=== PATIENT | female | born 1995 | race Caucasian/White ===

== ENCOUNTER 2018-07-11 17:12 | Emergency (ER) | payer BC ==
[2018-07-11 17:18] VITALS: BP 118/65; PULSE 77; TEMP 98.1; BMI 22.2
[2018-07-11] MEDS ORDERED: DIPHTH,PERTUSS(ACELL),TET 0.5 ML DISP.SYRIN IM ONE (17:23)
--- NOTE | 2018-07-11 17:23 | PDOC ---
Attending Attestation - Resident Resident Name: Javon Huerta - ED Attending Attestation I have performed the following: I have examined & evaluated the patient, The case was reviewed & discussed with the resident, I agree w/resident's findings & plan, Exceptions are as noted - HPI HPI: 07/11/18 17:23 23 yo F presenting to the ER s/p trauma to the toe - pt dropped weight on toe - Physicial Exam PE: 07/12/18 10:29 GENERAL: Awake, alert, and fully oriented, in no acute distress extremity: diffusely tender to palpation, 2+ DP, 2+ PT, cap refil <2 sec, sensation in tact skin: laceration on plantar aspect of 4th digit, deep, 1.5 cm. - Medical Decision Making 07/12/18 10:30 Xray reveals distal tuft fracture Laceration re approximated by Dr Huerta Abx prescribed Pt to follow up with ortho Clinical Impression: toe fracture, initial presentation Laceration, initial presentation
--- NOTE | 2018-07-11 17:45 | PDOC ---
History of Present Illness - General Chief Complaint: Injury Stated Complaint: RT FOOT INJURY Time Seen by Provider: 07/11/18 17:15 History Source: Patient Exam Limitations: No Limitations - History of Present Illness Initial Comments: 07/11/18 17:43 Patient is a 23F with no significant medical history here today complaining of foot pain after dropping a dumbbell on her right foot. She states that this happened today. She was able to walk with some assistance. Patient endorses a laceration to the fourth toe. Denies fevers, chills, nausea, vomiting. Denies any other trauma. Last tetanus unknown. Patient is unsure of LMP. Past History - Past Medical History Allergies/Adverse Reactions: Allergies Allergy/AdvReac Type Severity Reaction Status Date / Time No Known Allergies Allergy Verified 07/11/18 17:13 Home Medications: Ambulatory Orders Amox-Tr/K Cl [Augmentin - 875Mg Tablet] 1 tab PO BID #24 tablet 07/11/18 Ibuprofen 400 mg PO ONCE 07/11/18 COPD: No Other medical history: DENIES - Suicide/Smoking/Psychosocial Hx Smoking History: Never smoked Have you smoked in the past 12 months: Yes Number of Cigarettes Smoked Daily: 1 Information on smoking cessation initiated: Yes Hx Alcohol Use: (occasional) Review of Systems - Review of Systems Comments:: 07/11/18 17:45 GENERAL/CONSTITUTIONAL: No fever or chills. No weakness. HEAD, EYES, EARS, NOSE AND THROAT: No change in vision. No sore throat. CARDIOVASCULAR: No chest pain or shortness of breath RESPIRATORY: No cough, wheezing, or hemoptysis. GASTROINTESTINAL: No nausea, vomiting, diarrhea or constipation. GENITOURINARY: No dysuria, frequency, or change in urination. MUSCULOSKELETAL: +R foot pain. No neck or back pain. SKIN: No rash NEUROLOGIC: No headache, vertigo, loss of consciousness, or change in strength/ sensation. ENDOCRINE: No increased thirst. No abnormal weight change HEMATOLOGIC/LYMPHATIC: No anemia, easy bleeding, or history of blood clots. ALLERGIC/IMMUNOLOGIC: No hives or skin allergy. *Physical Exam - Vital Signs Last Vital Signs Temp Pulse Resp BP Pulse Ox 98.1 F 77 18 118/65 100 07/11/18 17:12 07/11/18 17:12 07/11/18 17:12 07/11/18 17:12 07/11/18 17:12 - Physical Exam Comments: 07/11/18 17:45 GENERAL: Awake, alert, and fully oriented, in no acute distress R foot: diffusely tender to palpation, laceration on plantar aspect of 4th digit , deep, 1.5 cm. HEAD: No signs of trauma, normocephalic, atraumatic EYES: PERRLA, EOMI, sclera anicteric, conjunctiva clear ENT: Auricles normal inspection, hearing grossly normal, nares patent, oropharynx clear without exudates. Moist mucosa NECK: Normal ROM, supple, no lymphadenopathy, JVD, or masses LUNGS: No distress, speaks full sentences, clear to auscultation bilaterally HEART: Regular rate and rhythm, normal S1 and S2, no murmurs, rubs or gallops, peripheral pulses normal and equal bilaterally. NEUROLOGICAL: Cranial nerves II through XII grossly intact. Normal speech, no focal sensorimotor deficits SKIN: Warm, Dry, normal turgor, no rashes or lesions noted. Procedures - Laceration/Wound Repair Right Plantar Foot Wound Length: to 2.5 cm Wound Explored: clean, no foreign body present Wound's Depth, Shape: superficial, irregular Irrigated w/ Saline: Yes Betadine Prep: No Anesthesia: 1% Lidocaine Amount of Anesthetic (ccs): 5 Wound Debrided: minimal Wound Repaired With: Sutures Suture Size/Type: 4:0, proline Number of Sutures: 4 Layer Closure: No Sterile Dressing Applied: Yes Splint Applied: Yes Type of Splint Applied: Nakul tape Progress: 07/11/18 18:58 Tolerated without complication ED Treatment Course - RADIOLOGY Radiology Studies Ordered: Category Date Time Status FOOT-RIGHT [RAD] Stat Radiology 07/11/18 17:23 Ordered TOE(S) RIGHT [RAD] Stat Radiology 07/11/18 17:23 Ordered Medical Decision Making - Medical Decision Making 07/11/18 17:46 Patient is 23F here today with likely open fracture of 4th toe. Will do upreg. Will do x-rays of toes and foot. 07/11/18 18:58 Lac repaired as per note. Will discharge with augmentin. Patient is currently , safe to give as per [facility]. Given return precautions. Discharged home. Discharged with crutches and hard sole shoe. *DC/Admit/Observation/Transfer Diagnosis at time of Disposition: Laceration - Discharge Dispostion Disposition: HOME Condition at time of disposition: Good Decision to Admit order: No - Prescriptions Prescriptions: Amox-Tr/K Cl [Augmentin - 875Mg Tablet] 1 tab PO BID #24 tablet - Referrals Referrals: Nabil Escalera MD [Primary Care Provider] - - Patient Instructions Printed Discharge Instructions: DI for Laceration Repair Additional Instructions: Please follow up with orthopedics tomorrow. Please return if you have any new, worsening or concerning symptoms, especially fever, chills, and spreading redness. - Post Discharge Activity Forms/Work/School Notes: Back to Work
[2018-07-11] MEDS ORDERED: AMOX TR/POT CLAV 875MG/125MG TABLETS (FP) PO ONE (19:01)
[2018-07-11] MEDS ORDERED: AMOX TR/POT CLAV 875MG/125MG TABLETS (FP) ONE (19:02)
== END 2018-07-11 19:10 | disposition home or self-care (01) ==
LOC: FER 17:12
PROC: 0HQMXZZ Repair Right Foot Skin, External Approach (ICD-10-PCS; principal; 2018-07-11)
DX: S91.114A Laceration without foreign body of right lesser toe(s) without damage to nail, initial encounter (principal); W20.8XXA Other cause of strike by thrown, projected or falling object, initial encounter; Y93.89 Activity, other specified; Y92.89 Other specified places as the place of occurrence of the external cause
CPT/HCPCS: 73630-TC-RT-FY; 73660-TC-FY; 84703; 90715; 99283-25